=== PATIENT | male | born 1980 | race Caucasian/White ===

== ENCOUNTER → 2024-11-01 17:41 | Outpatient (REF) | payer OTHER, SELFPAY | LOC: RAD 17:41 | PROVIDERS: ATTENDING PHYSICIAN Family Medicine | DX: R05.3 Chronic cough (principal) | CPT/HCPCS: 71046 ==

== ENCOUNTER → 2025-01-15 11:17 | Outpatient (REF) | payer OTHER, SELFPAY ==
--- NOTE | 2025-01-15 15:07 | EEG.RPT ---
Electroencephalogram Report
Recording
Date of EE01/15/25
Type of EEG: Routine
Length of EEG recordin minutes
Done with Video Recording: Yes
Patient Status: Outpatient
Recording Conditions: Awake and Drowsy
Hyperventilation Performed: No
Photic Stimulation Performed: Yes
Report
LESS THAN 1 HOUR EEG INTERPRETATION:
Unremarkable EEG for age
CLINICAL CORRELATION:
A normal EEG does not rule out a diagnosis of epilepsy. If clinical suspicion for seizure persists, a prolonged recording may be warranted.
Clinical correlation is advised.
METHODS:
A 21 channel digitized electroencephalogram (EEG) was performed using the 10/20 international system of electrode placement and one-lead of ECG recorded. The [email or web address] quantitative EEG system was utilized.
ELECTROENCEPHALOGRAPHER IMPRESSION(S):
Quality of study
Good
Background
There was an unremarkable anterior-posterior voltage gradient of alpha frequency.
With eye opening the background activity changed to a low voltage mixture of frequencies.
There were no significant asymmetries of background activity noted.
Sleep
Drowsiness present
Hyperventilation
No activation
Photic Stimulation
No activation
ECG
Normal sinus rhythm
== END ==
LOC: EEG 11:17
PROVIDERS: ATTENDING PHYSICIAN Family Medicine
DX: G40.909 Epilepsy, unspecified, not intractable, without status epilepticus (principal)
CPT/HCPCS: 95816

== ENCOUNTER → 2025-02-11 12:26 | Outpatient (REF) | payer OTHER, SELFPAY | LOC: PAVMRI 12:26 | PROVIDERS: ATTENDING PHYSICIAN Psychiatry & Neurology Neurology; FAMILY PHYSICIAN Family Medicine | DX: R56.9 Unspecified convulsions (principal) | CPT/HCPCS: 70551 ==

== ENCOUNTER → 2025-03-05 09:39 | Outpatient (REF) | payer OTHER, SELFPAY ==
--- NOTE | 2025-03-08 13:06 | EEG.RPT ---
Electroencephalogram Report
Recording
Date of EE03/08/25
Type of EEG: Ambulatory
Length of EEG recordin days 15 minutes
Done with Video Recording: No
Patient Status: Outpatient
Recording Conditions: Awake, Drowsy and Asleep
Hyperventilation Performed: Yes
Photic Stimulation Performed: Yes
Report
48 HOUR AMBULATORY EEG SUMMARY
EEG CONCLUSION(S):
Unremarkable EEG for age
CLINICAL CORRELATION:
A normal EEG may not rule out a diagnosis of epilepsy.
The patient�s logs did not indicate clinical symptoms which had electrical correlates.
Consideration for multiple day monitoring may be given.
Clinical correlation is advised.
METHODS:
A 21 channel digitized electroencephalogram (EEG) was initiated in the [facility]. The patient wore the device outside of the laboratory and returned after 24 hours for electrode and recorder removal. The 10/20
international system of electrode placement was used with bipolar electrode montage recorded. ECG was monitored. [employer] quantitative EEG analysis was performed.
IMPRESSION(S):
Quality
Good
Background
Maximal wakefulness: alpha
There was a normal anterior-posterior voltage gradient. With eye opening the background activity changed. No significant asymmetries of background activity noted.
Sleep
Drowsiness was suggested by slowing of the background rhythms
Stage I sleep was recorded
Stage 2 sleep was recorded
ECG
Unremarkable
Hyperventilation:
failed to demonstrate abnormalities
Photic stimulation
No driving
== END ==
LOC: EEG 09:39
PROVIDERS: ATTENDING PHYSICIAN Psychiatry & Neurology Neurology; FAMILY PHYSICIAN Family Medicine
DX: R56.9 Unspecified convulsions (principal)
CPT/HCPCS: 95708

== ENCOUNTER → 2025-04-02 22:00 | Outpatient (REF) | payer OTHER, SELFPAY | LOC: DHSLP 22:00 | PROVIDERS: ATTENDING PHYSICIAN Internal Medicine; FAMILY PHYSICIAN Family Medicine | DX: G47.19 Other hypersomnia (principal); R06.83 Snoring; J45.20 Mild intermittent asthma, uncomplicated; E66.9 Obesity, unspecified | CPT/HCPCS: 95806 ==